=== PATIENT | male | born 1980 | race American Indian/Alaskan Native ===

== ENCOUNTER 2020-11-26 11:53 | Emergency (ER) | payer SELFPAY ==
[2020-11-26 12:12] VITALS: BP 145/100
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
== END 2020-11-26 12:30 | disposition home or self-care (01) ==
LOC: ED 11:53
DX: M10.9 Gout, unspecified (principal); Z76.0 Encounter for issue of repeat prescription; Z79.899 Other long term (current) drug therapy
CPT/HCPCS: 99281